=== PATIENT | female | born 1950 | race Caucasian/White ===

== ENCOUNTER 2016-11-13 22:36 | Inpatient (IN) | payer OTHER, BC ==
[~2016-11-13] VITALS: Ht 167.6 cm; Wt 91.7 kg
[2016-11-13] MEDS ORDERED: ATOR10TA88 PO (22:52)
[2016-11-13] MEDS ORDERED: ASPI81TA28 PO (22:52)
[2016-11-13] MEDS ORDERED: MULT-506 PO (22:52)
[2016-11-13] MEDS ORDERED: ONDANSETRON INJ 2 MG/ML 2 ML VIAL IV STA (23:49)
[2016-11-13] MEDS ORDERED: MoRPHine SULFATE 10 MG/ML CARP/VIAL IV STA (23:49)
[2016-11-13] MEDS ORDERED: SODIUM CHLORIDE 0.9% 500ML 500 ML IV STA (23:49)
[2016-11-13 23:58] LABS: BASO % 0.2 %; BASO ABS # 0.02 K/uL (0-0.2); COMPLETE YES; HEMATOCRIT 40.4 % (37-47); IG% 0.3 %; LYMPH % 10.5 %; LYMPH ABS # 1.03 K/uL (1.2-3.4); MEAN CELL VOLUME 87.1 fL (80-100); MEAN CORPUSCULAR HEMOGLOBIN 29.5 pg (25-34); MEAN CORPUSCULAR HGB CONC 33.9 g/dl (32-36); MEAN PLATELET VOLUME 10.3 fL (7.4-10.4); MONO % 6.1 %; NEUT % 81.9 %; PLATELET COUNT 165 K/uL (130-400); RED BLOOD COUNT 4.64 M/uL (4.2-5.4); WHITE BLOOD COUNT 9.82 K/uL (4.8-10.8)
[2016-11-14] VITALS (9 sets, daily range): BP systolic 105–148; BP diastolic 65–84; PULSE 70–91; TEMP 36.3–37.1; O2SAT 92–98; Ht 167.6 cm; Wt 91.7 kg
[2016-11-14] MEDS ORDERED: MoRPHine SULFATE 2 MG/ML CARP ONE (00:09)
[2016-11-14] MEDS ORDERED: MoRPHine SULFATE 4 MG/ML 1 ML CARP\\VIAL ONE (00:09)
[2016-11-14 00:20] LABS: BLOOD UREA NITROGEN 25 mg/dl (7-18); BUN/CREATININE RATIO 25.5 (10-20); CALCIUM 8.5 mg/dl (8.5-10.1); CARBON DIOXIDE 29 mmol/L (21-32); CHLORIDE 108 mmol/L (98-107); CREATININE 0.97 mg/dl (0.60-1.20); GLUCOSE 110 mg/dl (70-99); POTASSIUM 4.4 mmol/L (3.5-5.1); PROTHROMBIN TIME (PATIENT) 10.5 SECONDS (9.0-12.0); SODIUM 142 mmol/L (136-145)
[2016-11-14 00:28] LABS: URINE APPEARANCE CLEAR (CLEAR); URINE BILIRUBIN NEG (NEG); URINE COLOR YELLOW; URINE NITRITE NEG (NEG); URINE SPECIFIC GRAVITY 1.022 (1.000-1.030); UROBILINOGEN NEG (NEG); ZZURINE CULT IF INDIC CATH NO
[2016-11-14 00:31] LABS: MANUAL MICROSCOPIC REQUIRED? NO; REVIEW REQ? NO
[2016-11-14 00:39] LABS: ALKALINE PHOSPHATASE 63 U/L (45-117); ALT/SGPT 27 U/L (12-78); AST/SGOT 18 U/L (15-37)
[2016-11-14] MEDS ORDERED: HYDROmorphone INJ 0.5 MG/0.5 ML SYR IV PRN (01:45)
[2016-11-14] MEDS ORDERED: BISACODYL 10 MG SUPP PR PRN ×2 (01:45→18:00)
[2016-11-14] MEDS ORDERED: NALOXONE HCL 0.4 MG/1 ML VIAL/CARP IV PRN (01:45)
[2016-11-14] MEDS ORDERED: ONDANSETRON INJ 2 MG/ML 2 ML VIAL IV PRN ×2 (01:45→15:45)
[2016-11-14] MEDS ORDERED: SOD PHOSPHATE/SOD BIPHOSPHATE ENEMA 132 ML BTL PR PRN ×2 (01:45→18:00)
[2016-11-14] MEDS ORDERED: POLYETHYLENE (MIRALAX) 17 GM PACK PO PRN (01:45)
[2016-11-14] MEDS ORDERED: MAGNESIUM HYDROXIDE SUSP 30 ML UDC PO PRN ×2 (01:45→18:00)
--- NOTE | 2016-11-14 01:57 | History and Physical ---
History & Physical Date & Time of Service: Nov 14, 2016 at 01:43 Chief Complaint: Fall, Hip Pain Primary Care Physician: No Doctor, Assigned History of Present Illness Source: patient 66-year-old female with no significant past medical history presented to the ER with complaints of left-sided hip pain. The [place] out [place] and was visiting friends in [place] [facility] [employer] and was attending the [employer] display this evening. She tripped over the sidewalk and fell on her left hip . She stated that she could not bear weight on her left leg. Denies any dizziness or lightheadedness, palpitations or chest pain prior to the fall. Denies any injury to the head, loss of consciousness. Complains of pain along the left hip which she thinks is fairly well controlled , denies any numbness or tingling along her left leg. Denies any chest pain, shortness of breath, nausea or vomiting or abdominal pain. Social History Smoking Status: Never Smoker Allergies Coded Allergies: No Known Allergies (Unverified , 11/13/16) Home Medications Scheduled Aspirin (Aspirin Ec), 81 MG PO DAILY Atorvastatin (Lipitor), 1 TAB PO DAILY Multivitamin (Multivitamin), 1 TAB PO DAILY Review of Systems Constitutional: No fever, No chills Eyes: No worsening of vision ENT: No hearing loss Respiratory: No cough, No sputum Cardiovascular: No chest pain Abdomen: No pain, No nausea, No vomiting Musculoskeletal: + joint pain (left hip pain) Genitourinary - Female: No dysuria, No urinary frequency Neurologic: No memory loss Psychiatric: No depression symptoms Endocrine: No fatigue Integumentary: No rash Physical Exam Vital Signs Date Time Temp Pulse Resp B/P (MAP) Pulse Ox O2 Delivery O2 Flow Rate FiO2 11/14/16 00:46 84 20 145/73 92 Room Air 11/13/16 23:54 85 11/13/16 22:38 36.7 83 20 177/83 96 Room Air General Appearance: WD/WN, no apparent distress Head: normocephalic Eyes: normal inspection ENT: normal ENT inspection, hearing grossly normal Neck: supple Respiratory/Chest: chest non-tender, lungs clear, normal breath sounds, no respiratory distress, no accessory muscle use Cardiovascular: regular rate, rhythm, no edema Abdomen/GI: normal bowel sounds, non tender, soft Extremities/Musculoskelatal: no calf tenderness, no pedal edema, + pertinent finding (some tenderness along left hip) Neurologic/Psych: alert, normal mood/affect, oriented x 3 Skin: normal color Diagnostics Laboratory Results Results Past 24 Hours Test 11/13/16 23:50 11/13/16 23:59 Range/Units White Blood Count 9.82 4.8-10.8 K/uL Red Blood Count 4.64 4.2-5.4 M/uL Hemoglobin 13.7 12.0-16.0 g/dL Hematocrit 40.4 37-47 % Mean Corpuscular Volume 87.1 80-100 fL Mean Corpuscular Hemoglobin 29.5 25-34 pg Mean Corpuscular Hemoglobin Concent 33.9 32-36 g/dl Platelet Count 165 130-400 K/uL Mean Platelet Volume 10.3 7.4-10.4 fL Neutrophils (%) (Auto) 81.9 % Lymphocytes (%) (Auto) 10.5 % Monocytes (%) (Auto) 6.1 % Eosinophils (%) (Auto) 1.0 % Basophils (%) (Auto) 0.2 % Neutrophils # (Auto) 8.04 1.4-6.5 K/uL Lymphocytes # (Auto) 1.03 1.2-3.4 K/uL Monocytes # (Auto) 0.60 0.11-0.59 K/uL Eosinophils # (Auto) 0.10 0-0.5 K/uL Basophils # (Auto) 0.02 0-0.2 K/uL RDW Standard Deviation 43.2 36.4-46.3 fL RDW Coefficient of Variation 13.6 11.5-14.5 % Immature Granulocyte % (Auto) 0.3 % Immature Granulocyte # (Auto) 0.03 0.00-0.02 K/uL Prothrombin Time 10.5 9.0-12.0 SECONDS Prothromb Time International Ratio 1.0 0.9-1.1 Activated Partial Thromboplast Time 26.8 21.0-31.0 SECONDS Partial Thromboplastin Ratio 1.0 Sodium Level 142 136-145 mmol/L Potassium Level 4.4 3.5-5.1 mmol/L Chloride Level 108 98-107 mmol/L Carbon Dioxide Level 29 21-32 mmol/L Anion Gap 5.0 3-11 mmol/L Blood Urea Nitrogen 25 7-18 mg/dl Creatinine 0.97 0.60-1.20 mg/dl Est Creatinine Clear Calc Drug Dose 65.1 ml/min Estimated GFR () 70.5 Estimated GFR (Non- 60.9 BUN/Creatinine Ratio 25.5 10-20 Random Glucose 110 70-99 mg/dl Calcium Level 8.5 8.5-10.1 mg/dl Total Bilirubin 0.3 0.2-1 mg/dl Direct Bilirubin < 0.1 0-0.2 mg/dl Aspartate Amino Transf (AST/SGOT) 18 15-37 U/L Alanine Aminotransferase (ALT/SGPT) 27 12-78 U/L Alkaline Phosphatase 63 45-117 U/L Troponin I < 0.015 0-0.045 ng/ml Total Protein 7.0 6.4-8.2 gm/dl Albumin 3.5 3.4-5.0 gm/dl Urine Color YELLOW Urine Appearance CLEAR CLEAR Urine pH 5.0 4.5-7.5 Urine Specific [place] 1.022 1.000-1.030 Urine Protein NEG NEG Urine Glucose (UA) NEG NEG Urine Ketones NEG NEG Urine Occult Blood NEG NEG Urine Nitrite NEG NEG Urine Bilirubin NEG NEG Urine Urobilinogen NEG NEG Urine Leukocyte Esterase NEG NEG Diagnostic Radiology Left hip/pelvis x-ray: Intertrochanteric fracture of left femur Chest x-ray: No focal infiltrate Impression Assessment and Plan 66-year-old female with no significant past medical history presented to the ER with complaints of left-sided hip pain after sustaining a mechanical fall on the left side. The patient is fairly healthy with no significant past medical history. Recent DEXA was normal Revised cardiac risk index for preoperative risk 0, 0.4% risk of major cardiac event-- low risk Left femoral intertrochanteric fracture secondary to mechanical fall: - Hip/pelvis x-ray: Left femoral intertrochanteric fracture - EKG: Normal sinus rhythm with nonspecific ST changes - Pain control with hydromorphone and morphine - Nothing by mouth - Orthopedic consult DVT prophylaxis: SCDs Full code Disposition: Admitted to [facility] Resident Physician Supervision Note: I was present with Dr. Alexander during the history and exam. I discussed the case with the resident and agree with the findings and plan as documented in the note. Any exceptions or clarifications are listed here: 66 y/o F presenting following a fall and subsequent hip fracture. Recently had a DEXA which was neg for osteoporosis. She denies active medical issues. OE AAO x 3 S1,2 R CTAB NT, ND BS+ No CCE P: IVF, NPO pending ortho eval Risk assessment completed with resident - no further CV workup recommended Documented By: Maximiliano Rutledge Level of Care Med/Surg Resuscitation Status FULL RESUSCITATION VTE Prophylaxis Given or contraindicated: SCD's Resident Tracking Resident Involvement: Resident Care Provided Care Provided: Adult Hospital Medicine
--- NOTE | 2016-11-14 02:50 | EMERGENCY ROOM VISIT NOTE ---
History Report prepared by Fransisco: Toni Lopez Under the Supervision of: Dr. Yanet Garcia D.O. First contact with patient: 23:10 Chief Complaint: FALL Stated Complaint: FALL, HIP PAIN History of Present Illness The patient is a 66 year old female who presents to the Emergency Room with complaints of pain in her left hip following a falling accident that occurred just shortly prior to arrival. The patient states that she was attending the [employer] this evening and tripped over the sidewalk while walking back to her vehicle. She states that she fell directly onto her left hip. The patient notes that she was not able to put weight on the left leg following the accident. She claims that she did not impact her head during the fall. She denies any head, back, or neck pain currently. The patient also denies headache , numbness, tingling, change in vision, fevers, chest pain, shortness of breath , nausea, vomiting, diarrhea, pain with urination, and melena. She is on 81 mg of Aspiring daily as a blood thinner. Source of History: patient Onset: Shortly [employer] Position: leg (left, hip) Quality: other (Fall) Associated Symptoms: No LOC, No headache, No weakness, No numbness Review of Systems See HPI for pertinent positives & negatives. A total of 10 systems reviewed and were otherwise negative. Past Medical & Surgical Medical Problems: (1) Fracture, intertrochanteric, left femur Patient denies any past medical/surgical history Family History Family history omitted secondary to age. Social History Smoking Status: Never Smoker Drug Use: none Marital Status: Housing Status: lives with significant other Current/Historical Medications Scheduled Aspirin (Aspirin Ec), 81 MG PO DAILY Atorvastatin (Lipitor), 1 TAB PO DAILY Multivitamin (Multivitamin), 1 TAB PO DAILY Allergies Coded Allergies: No Known Allergies (Unverified , 11/13/16) Physical Exam Vital Signs Date Time Temp Pulse Resp B/P (MAP) Pulse Ox O2 Delivery O2 Flow Rate FiO2 11/14/16 00:46 84 20 145/73 92 Room Air 11/13/16 23:54 85 11/13/16 22:38 36.7 83 20 177/83 96 Room Air Physical Exam GENERAL: Laying in bed, disheveled, well nourished, no distress, non-toxic HEAD: normal cephalic, atraumatic EYE EXAM: normal conjunctiva, PERRL and EOM's grossly intact OROPHARYNX: no exudate, no erythema, lips, buccal mucosa, and tongue normal and mucous membranes are moist NECK: supple, no nuchal rigidity, no adenopathy, non-tender CHEST: stable to compression anteriorly and posteriorly LUNGS: clear to auscultation. Normal chest wall mechanics HEART: no murmurs, S1 normal and S2 normal ABDOMEN: abdomen soft, non-tender, normo-active bowel sounds, no masses, no rebound or guarding. PELVIS: stable to compression anteriorly and posteriorly BACK: Back is symmetrical on inspection and there is no deformity, no midline tenderness, no CVA tenderness. UPPER EXTREMITIES: full active and passive range of motion of all joints without tenderness to palpation LOWER EXTREMITIES: There is upper right leg tenderness over the left hip, no pain within the ankle, calf, knee, or distal femur. The right extremity is without tenderness. DP were 2/4 bilaterally. Gross sensation is intact. NEURO EXAM: Normal sensorium, cranial nerves II-XII grossly intact, normal speech, no gross weakness of arms, GCS: 15. Medical Decision & Procedures ER Provider Diagnostic Interpretation: Radiology results as stated below per my review X-RAY: 3 VIEW OF THE LEFT HIP X-ray reveals a left Intertrochanteric fracture. No obvious pelvic fracture. X-RAY: AP UPRIGHT 1 VIEW No focal infiltrate, no pneumothorax. Laboratory Results 11/13/16 23:50 Red Blood Count 4.64, Mean Corpuscular Volume 87.1, Mean Corpuscular Hemoglobin 29.5, Mean Corpuscular Hemoglobin Concent 33.9, Mean Platelet Volume 10.3, Neutrophils (%) (Auto) 81.9, Lymphocytes (%) (Auto) 10.5, Monocytes (%) (Auto) 6.1, Eosinophils (%) (Auto) 1.0, Basophils (%) (Auto) 0.2, Neutrophils # (Auto) 8.04, Lymphocytes # (Auto) 1.03, Monocytes # (Auto) 0.60, Eosinophils # (Auto) 0.10, Basophils # (Auto) 0.02 11/13/16 23:50 Test 11/13/16 23:50 11/13/16 23:59 White Blood Count 9.82 K/uL (4.8-10.8) Red Blood Count 4.64 M/uL (4.2-5.4) Hemoglobin 13.7 g/dL (12.0-16.0) Hematocrit 40.4 % (37-47) Mean Corpuscular Volume 87.1 fL (80-100) Mean Corpuscular Hemoglobin 29.5 pg (25-34) Mean Corpuscular Hemoglobin Concent 33.9 g/dl (32-36) Platelet Count 165 K/uL (130-400) Mean Platelet Volume 10.3 fL (7.4-10.4) Neutrophils (%) (Auto) 81.9 % Lymphocytes (%) (Auto) 10.5 % Monocytes (%) (Auto) 6.1 % Eosinophils (%) (Auto) 1.0 % Basophils (%) (Auto) 0.2 % Neutrophils # (Auto) 8.04 K/uL (1.4-6.5) Lymphocytes # (Auto) 1.03 K/uL (1.2-3.4) Monocytes # (Auto) 0.60 K/uL (0.11-0.59) Eosinophils # (Auto) 0.10 K/uL (0-0.5) Basophils # (Auto) 0.02 K/uL (0-0.2) RDW Standard Deviation 43.2 fL (36.4-46.3) RDW Coefficient of Variation 13.6 % (11.5-14.5) Immature Granulocyte % (Auto) 0.3 % Immature Granulocyte # (Auto) 0.03 K/uL (0.00-0.02) Prothrombin Time 10.5 SECONDS (9.0-12.0) Prothromb Time International Ratio 1.0 (0.9-1.1) Activated Partial Thromboplast Time 26.8 SECONDS (21.0-31.0) Partial Thromboplastin Ratio 1.0 Anion Gap 5.0 mmol/L (3-11) Est Creatinine Clear Calc Drug Dose 65.1 ml/min Estimated GFR () 70.5 Estimated GFR (Non- 60.9 BUN/Creatinine Ratio 25.5 (10-20) Calcium Level 8.5 mg/dl (8.5-10.1) Total Bilirubin 0.3 mg/dl (0.2-1) Direct Bilirubin < 0.1 mg/dl (0-0.2) Aspartate Amino Transf (AST/SGOT) 18 U/L (15-37) Alanine Aminotransferase (ALT/SGPT) 27 U/L (12-78) Alkaline Phosphatase 63 U/L (45-117) Troponin I < 0.015 ng/ml (0-0.045) Total Protein 7.0 gm/dl (6.4-8.2) Albumin 3.5 gm/dl (3.4-5.0) 25-Hydroxy Vitamin D Total 23.9 ng/ml (30-100) Urine Color YELLOW Urine Appearance CLEAR (CLEAR) Urine pH 5.0 (4.5-7.5) Urine Specific [place] 1.022 (1.000-1.030) Urine Protein NEG (NEG) Urine Glucose (UA) NEG (NEG) Urine Ketones NEG (NEG) Urine Occult Blood NEG (NEG) Urine Nitrite NEG (NEG) Urine Bilirubin NEG (NEG) Urine Urobilinogen NEG (NEG) Urine Leukocyte Esterase NEG (NEG) Laboratory results per my review. Medications Administered Medications (Trade) Dose Ordered Sig/Can Route Start Time Stop Time Status Last Admin Dose Admin Sodium Chloride 500 ml @ 999 mls/hr Q31M STAT IV 11/13/16 23:49 11/14/16 00:19 DC 11/14/16 00:15 999 MLS/HR Ondansetron HCl (Zofran Inj) 4 mg NOW STAT IV 11/13/16 23:49 11/13/16 23:50 DC 11/14/16 00:13 4 MG Morphine Sulfate (MoRPHine SULFATE INJ) 4 mg STK-MED ONCE .ROUTE 11/14/16 00:09 11/14/16 00:10 DC 11/14/16 00:13 4 MG Morphine Sulfate (MoRPHine SULFATE INJ) 2 mg STK-MED ONCE .ROUTE 11/14/16 00:09 11/14/16 00:10 DC 11/14/16 00:13 2 MG ECG Indication: other (Hip Fracture) Rate (beats per minute): 83 Rhythm: normal sinus Findings: nonspecific-ST abn (Lateral), other (Normal axis) Comparison ECG Date: no prior available ED Course ED COURSE: Vital signs were reviewed and showed hypertensive vitals The patients medical record was reviewed The above diagnostic studies were performed and reviewed. ED treatments and interventions as stated above. 2311: The patient was evaluated in room B7. A complete history and physical examination was performed. 2349: Ordered Zofran 4 mg IV, Sodium Chloride 500 mL @ 999 mL/hr IV, Morphine Sulfate 6 mg IV. 2356: I checked on the patient at this time to discuss the results of her hip x- ray. she is resting in bed. 0049: I discussed the case with Dr. Aamir Olmedo [facility] Hospitalist at this time. He will evaluate the patient for further treatment. 0052: Upon reevaluation, the patient is resting in bed.I discussed my findings with the patient and she understands and agrees with the treatment plan. Based on the patients age, coexisting illnesses, exam and lab findings the decision to treat as an inpatient was made. The patient remained stable while under my care. The patient will be evaluated for further management. Medical Decision Blood Pressure Screening: The patient was found to have a slightly elevated blood pressure due to circumstances. I do not believe that the patient requires hypertension monitoring. Medication Reconciliation: I attest that I have personally reviewed the patient' s current medication list. Differential diagnoses include major intracranial, cervical, spinal, thoracic, abdominal, pelvic and neurologic injury. Fracture, contusion, sprain, strain, laceration, abrasions included as well. Patient is a 66-year-old female who presents the ER following a mechanical fall for left hip pain. X-ray show an acute fracture. Hip fracture protocol was ordered. EKG shows slight ST segment depressions in the lateral leads. Troponin was negative. She denies chest pain or shortness of breath. She was given IV narcotics 2. She felt significantly better. She was admit to internal medicine to see orthopedics in the morning for her left hip fracture. Impression Primary Impression: Hip fracture, left Scribe Attestation The scribe's documentation has been prepared under my direction and personally reviewed by me in its entirety. I confirm that the note above accurately reflects all work, treatment, procedures, and medical decision making performed by me. Departure Information Dispostion Being Evaluated By Hospitalist Referrals No Doctor, Assigned (PCP) Patient Instructions My [facility] Problem Qualifiers Primary Impression: Hip fracture, left Encounter type: initial encounter Fracture type: closed Qualified Codes: S72.002A - Fracture of unspecified part of neck of left femur, initial encounter for closed fracture
[2016-11-14] MEDS: MoRPHine SULFATE 4 MG/ML 1 ML CARP\\VIAL IV PRN ×5 (03:28→21:09)
[2016-11-14] MEDS ORDERED: CEFAZOLIN 2000 MG/60 ML D5W 60 ML IV SCH (06:00)
--- NOTE | 2016-11-14 06:50 | DIAGNOSTIC IMAGING REPORT ---
CHEST 1 VW FRONT-NOT PORTABLE CLINICAL HISTORY: Left hip fracture. Preop chest. COMPARISON STUDY: No previous studies for comparison. FINDINGS: The cardiac and mediastinal contours are normal. There is no evidence of focal pulmonary consolidation. There is no evidence of failure. No pleural effusions are visualized.[ IMPRESSION: No active disease in the chest. Electronically signed by: Bernardino Alexandra M.D. 11/14/2016 6:49 AM Dictated Date/Time: 11/14/2016 6:48 AM
--- NOTE | 2016-11-14 06:56 | DIAGNOSTIC IMAGING REPORT ---
LEFT PELVIS/UNILATERAL HIP 2-3VIEWS CLINICAL HISTORY:66 year-old Female presenting with left hip pain status post fall. TECHNIQUE: Single frontal AP view of the pelvis and frontal and single lateral views of the left hip were obtained. COMPARISON: None. FINDINGS: The pelvis demonstrates no acute fracture or malalignment. Sacroiliac and pubic symphyseal joints intact. Mild osteophytosis of the left hip joint. Moderate stool burden noted. No gross evidence of bowel obstruction. The left hip demonstrates apparent minimally displaced basocervical cortical discontinuity and subjacent intertrochanteric radiolucency, concerning for a complete left femoral neck fracture. No apparent angulation. This abnormality is not well demonstrated on the crosstable lateral view. IMPRESSION: 1. Findings concerning for minimally displaced basocervical left femoral neck fracture. Electronically signed by: Jt Klein 11/14/2016 6:54 AM Dictated Date/Time: 11/14/2016 6:45 AM
--- NOTE | 2016-11-14 09:56 | Orthopedic Progress Note ---
Orthopedic Progress Note Date of Service Nov 14, 2016. Subjective Reports: feeling well, pain controlled w PO medications, Denies: complaints, chest pain, SOB, nausea / vomiting, light headedness, calf pain Additional Notes: 66 yo female who tripped over uneven grass lat evening at the [employer]. Was unable to ambulate, xrays show non displaced intertroch hip fracture. Denies any head injury, LOC, or any other joint injuries. PMHx- Hypercholesterolemia Meds: Lipitor, ASA, MVI Allergies: None Objective calves soft nontender, N/V intact, capillary refill less than 2 sec., A&O x3, toes mobile Hip slightly ER Date Time Temp Pulse Resp B/P (MAP) Pulse Ox O2 Delivery O2 Flow Rate FiO2 11/14/16 06:55 36.8 81 16 118/69 (85) 94 Room Air 11/14/16 02:55 36.7 91 16 128/66 (86) 92 Room Air 11/14/16 02:55 36.7 91 16 128/66 92 Room Air 11/14/16 02:47 89 17 126/73 92 11/14/16 00:46 84 20 145/73 92 Room Air 11/13/16 23:54 85 11/13/16 22:38 36.7 83 20 177/83 96 Room Air Laboratory Results 24 Hours: Test 11/13/16 23:50 White Blood Count 9.82 K/uL Red Blood Count 4.64 M/uL Hemoglobin 13.7 g/dL Hematocrit 40.4 % Mean Corpuscular Volume 87.1 fL Mean Corpuscular Hemoglobin 29.5 pg Mean Corpuscular Hemoglobin Concent 33.9 g/dl Platelet Count 165 K/uL Mean Platelet Volume 10.3 fL Neutrophils (%) (Auto) 81.9 % Lymphocytes (%) (Auto) 10.5 % Monocytes (%) (Auto) 6.1 % Eosinophils (%) (Auto) 1.0 % Basophils (%) (Auto) 0.2 % Neutrophils # (Auto) 8.04 K/uL Lymphocytes # (Auto) 1.03 K/uL Monocytes # (Auto) 0.60 K/uL Eosinophils # (Auto) 0.10 K/uL Basophils # (Auto) 0.02 K/uL Prothromb Time International Ratio 1.0 Prothrombin Time 10.5 SECONDS Assessment & Plan Assessment: Left hip fracture Hypercholesterolemia Plan: Will plan for Left hip ORIF later today.
[2016-11-14] MEDS ORDERED: CEFAZOLIN IV 2,000 MG in DEXTROSE 5% 50ML 50 ML IV SCH (10:00)
--- NOTE | 2016-11-14 11:25 | Progress Note ---
Progress Note Date of Service Nov 14, 2016. (Rowan Cornelius MD) Progress Note S: Patient admitted this AM and seen today on rounds. She denied much pain. Is from [place] and was asking if she could go home to have her hip replacement. I discussed her she should discuss that with them. O: VS as per EMR Gen: Awake, alert, no acute distress CVS: RRR, no MRG Chest: CTAB MSK: L leg externally rotated, minimally shortened. L hip tender to palpation. Ext: Peripheral pulses intact. A: 66yo F, due for L hip replacement after a fall from standing height P: L ORIF with Dr Fierro today Remains NPO Had normal EKG and CXR, no other cardiac work up prior to surgery. (Rowan Cornelius MD) Resident Physician Supervision Note: I was present with PGY3 Dr. Rowan Cornelius during the history and exam. I discussed the case with the resident and agree with the findings and plan as documented in the note. Any exceptions or clarifications are listed here: none. I saw the patient post-op from her ORIF of the left hip fracture. She was resting comfortably. Denied cp, sob, abd pain. VSS no fever gen - nad neck - no JVD heart - RRR lungs - CTA b/l abd - soft, ND ext - mild left thigh edema, no ankle edema b/l, pulses 2+ b/l A/P: left hip fracture s/p ORIF today repeat labs in am fluids, pain control, dispo planning - latter complicated by the fact that her state of residence is [place] Documented By: José Prado MD (José Prado MD) Resident Tracking Resident Involvement: Resident Care Provided Care Provided: Adult [facility] (Rowan Cornelius MD)
[2016-11-14] MEDS: LACTATED RINGER'S 1000ML 1,000 ML IV SCH ×2 (14:13→19:19)
[2016-11-14] MEDS ORDERED: MIDAZOLAM HCL 1 MG/ML 2ML VIAL ONE (14:55)
[2016-11-14] MEDS ORDERED: KETAMINE HCL INJ 50 MG/ML 10 ML VIAL ONE (14:55)
[2016-11-14] MEDS ORDERED: FENTANYL CITRATE INJ 50 MCG/1 ML 2 ML VIAL ONE (14:55)
[2016-11-14] MEDS ORDERED: BUPIVACAINE 0.5 % 5 MG/1 ML PF 10ML VIAL ONE (15:37)
--- NOTE | 2016-11-14 15:42 | History & Physical Bridge Note ---
H&P Re-Evaluation Bridge Note: I have examined the patient, reviewed the History & Physical and in the interval since the performance of the History & Physical I have noted the following changes of clinical significance: No changes noted
[2016-11-14] MEDS ORDERED: EpHEDrine SULFATE INJ 50 MG/ML AMP IV PRN (15:45)
[2016-11-14] MEDS ORDERED: ATROPINE SULFATE 0.1 MG/ML 5ML SYR IV PRN (15:45)
[2016-11-14] MEDS ORDERED: LIDOCAINE HCL 2% 2 ML VIAL (20MG/ML) ONE (17:44)
[2016-11-14] MEDS ORDERED: PROPOFOL IV EMULSION 10 MG/ML 20 ML VIAL IV ONE (17:44)
[2016-11-14] MEDS ORDERED: SODIUM CHLORIDE 0.9% INJ 10 ML VIAL ONE (17:51)
[2016-11-14] MEDS: FENTANYL CITRATE INJ 50 MCG/1 ML 2 ML VIAL IV PRN ×4 (18:03→18:18)
--- NOTE | 2016-11-14 18:19 | [facility] Operative Report ---
Operative Report Operative Date Nov 14, 2016. Pre-Operative Diagnosis Left intertrochanteric hip fracture Post-Operative Diagnosis same Procedure(s) Performed ORIF with trochanteric femoral nail left hip fracture Surgeon Dr. Victor Hugo Fierro Assistant Professor Of Nursing Surgeon(s) Harris Thomas PA-C Estimated Blood Loss 50mL Findings Intertrochanteric hip fracture with good bone noted and stable fixation. Specimens none, Per Surgeon Drains none Complication(s) None Disposition Recovery Room / PACU Indications Acute left hip fracture Description of Procedure Patient is taken to the operating room and anesthetized under spinal anesthesia. She was placed supine on a fracture table. The left leg was placed into boot traction and the well leg was placed into a well-padded leg holding device in flexion and internal rotation. The reduction was performed by abducting the hip placing longitudinal traction in the external rotated position then internally rotation after traction was placed and then adducting the hip. An anatomic reduction was obtained. The left hip was sterilely prepped and draped in usual fashion using ChloraPrep. Fluoroscopy was used throughout the case to assist in the procedure. A lateral incision was made over the left hip. The skin was incised sharply. The subcutaneous fat was divided down to the fascia. Patient more than typical subcutaneous tissue with very significant fat over the hip area. The fascia was divided longitudinally and the gluteus medius was split with a Dasilva elevator enough to identify the tip of the greater trochanter. A guidewire was placed under fluoroscopic guidance and then the drill was used to open up the canal. We more than typical difficulty trying to get the short nail in position so I did advance a guidewire first and then used the curved awl to advance it over the guidewire to further open up the canal in this particular patient. We chose a 12 millimeter gabo. I left the guidewire in place The insertion device was used to insert the gabo over the guidewire and seated at the appropriate depth after which the guidewire was removed and then the second incision was made for the helical blade. The guide was placed and the guidewire was advanced under fluoroscopic guidance into the femoral neck and head. The guidewire placement was centrally aligned on the lateral view centrally aligned in the neck on the AP view but when he got into the head was slightly cephalad of AP but with her very hard bone I accepted this position due to the fact that we are not read. The gabo below the level of the tip of the trochanter and she had some varus neck shaft angle.. The reamers were used and then the 105 millimeter helical blade was impacted into the neck and head fragment. The bone quality was excellent with very hard bone.. The proximal locking screw was tightened. The fracture was compressed. And then the guide for the distal locking screw was advanced to the bone and the drill used and the measurement taken. A 5 mm x 44 mm millimeter locking screw then placed with good fixation. X-rays were obtained to document reduction AP and lateral views. All wounds were irrigated. The subcutaneous tissues were closed with large needle 2-0 Vicryl to close the large amount of space in the proximal incision in the distal incision and superficial fat closed with 2-0 Vicryl.. The skin was closed with linda and sterile dressings were applied. The patient tolerated the procedure well. My physician educational assistant Harris SCHROEDER was first mate throughout the procedure and assisted in patient positioning prepping and draping soft tissue retraction and wound closure and will participate in the postoperative care of the patient. I attest to the content of the Intraoperative Record and any orders documented therein. Any exceptions are noted below.
[2016-11-14] MEDS ORDERED: HYDROmorphone INJ 1 MG/ML SYR ONE (18:25)
[2016-11-14] MEDS: HYDROmorphone INJ 1 MG/ML SYR IV PRN ×3 (18:30→18:40)
--- NOTE | 2016-11-14 19:02 | Anesthesiology Progress Note ---
Anesthesia Post Op Note Date & Time Nov 14, 2016 at 19:02 Vital Signs Pain Intensity: 2 Vital Signs Past 12 Hours Date Time Temp Pulse Resp B/P (MAP) Pulse Ox O2 Delivery O2 Flow Rate FiO2 11/14/16 18:57 37.4 67 16 145/66 (98) 97 Nasal Cannula 2 11/14/16 18:56 127/96 11/14/16 18:53 68 15 11/14/16 18:53 68 15 99 11/14/16 18:51 140/69 11/14/16 18:48 67 11 11/14/16 18:48 67 11 98 11/14/16 18:46 142/75 11/14/16 18:43 67 16 98 11/14/16 18:43 67 16 11/14/16 18:41 143/70 11/14/16 18:38 67 13 11/14/16 18:38 65 13 98 11/14/16 18:37 68 14 99 11/14/16 18:37 68 14 11/14/16 18:36 144/74 11/14/16 18:32 67 14 99 11/14/16 18:32 67 14 11/14/16 18:31 146/78 11/14/16 18:27 66 9 11/14/16 18:27 65 9 98 11/14/16 18:26 147/63 11/14/16 18:22 67 15 11/14/16 18:22 67 15 97 11/14/16 18:21 145/70 11/14/16 18:17 64 12 99 11/14/16 18:17 64 12 11/14/16 18:16 63 11 11/14/16 18:16 63 11 137/82 99 11/14/16 18:11 65 12 11/14/16 18:11 65 12 150/80 100 11/14/16 18:06 65 13 134/69 100 11/14/16 18:06 65 13 11/14/16 18:01 68 15 11/14/16 18:01 68 15 127/72 100 11/14/16 17:56 37.7 69 16 127/74 99 Mask 10 11/14/16 17:56 69 14 127/74 99 11/14/16 17:56 68 14 11/14/16 14:53 36.7 75 16 105/65 (78) 92 Room Air Notes Mental Status: alert / awake / arousable, participated in evaluation Pt Amnestic to Procedure: Yes Nausea / Vomiting: adequately controlled Pain: adequately controlled Airway Patency, RR, SpO2: stable & adequate BP & HR: stable & adequate Hydration State: stable & adequate Neuraxial Anesthesia: was administered, sensory block is resolving Anesthetic Complications: no major complications apparent
[2016-11-14] MEDS: OXYCODONE HCL IR 5 MG TAB (IMMEDIATE RELEASE) PO PRN (19:54)
--- NOTE | 2016-11-14 20:32 | DIAGNOSTIC IMAGING REPORT ---
LEFT FEMUR 2 VIEWS ROUTINE CLINICAL HISTORY: Left trochanteric nail. COMPARISON: Pelvis and left hip radiograph November 13, 2016. Fluoroscopy time: 2 minutes and 56 seconds. FINDINGS: 5 fluoroscopic images demonstrate placement of an intramedullary gabo and trochanteric nail which fixates the intertrochanteric fracture/basicervical fracture of the left femur. Fracture alignment has improved and is near anatomic. Hardware is intact. There are no unexpected radiopaque foreign bodies. IMPRESSION: Expected findings following proximal left femoral internal fixation. Electronically signed by: Hector Lee M.D. 11/14/2016 8:30 PM Dictated Date/Time: 11/14/2016 8:29 PM
[2016-11-14] MEDS: DOCUSATE SODIUM 100 MG CAP PO SCH (21:06)
[2016-11-14] MEDS: DOCUSATE SODIUM/SENNA 50/8.6MG TAB PO SCH (21:06)
[2016-11-14] MEDS: ACETAMINOPHEN 500 MG TAB PO SCH (21:07)
[2016-11-14] MEDS: CEFAZOLIN IV 2,000 MG in DEXTROSE 5% 50ML 50 ML IV SCH (23:27)
[2016-11-15] MEDS: LACTATED RINGER'S 1000ML 1,000 ML IV SCH ×4 (00:06→23:57)
[2016-11-15 03:46] VITALS: BP 127/76; PULSE 78; TEMP 36.3; O2SAT 98
[2016-11-15] MEDS: OXYCODONE HCL IR 5 MG TAB (IMMEDIATE RELEASE) PO PRN ×5 (04:39→23:14)
[2016-11-15] MEDS: ACETAMINOPHEN 500 MG TAB PO SCH ×3 (05:37→21:38)
[2016-11-15 06:52] LABS: HEMATOCRIT 35.1 % (37-47); MEAN CELL VOLUME 86.2 fL (80-100); MEAN CORPUSCULAR HEMOGLOBIN 28.7 pg (25-34); MEAN CORPUSCULAR HGB CONC 33.3 g/dl (32-36); MEAN PLATELET VOLUME 9.9 fL (7.4-10.4); PLATELET COUNT 126 K/uL (130-400); RED BLOOD COUNT 4.07 M/uL (4.2-5.4); WHITE BLOOD COUNT 9.67 K/uL (4.8-10.8)
[2016-11-15 07:34] LABS: BUN/CREATININE RATIO 16.4 (10-20); CALCIUM 7.9 mg/dl (8.5-10.1); CREATININE 0.63 mg/dl (0.60-1.20); POTASSIUM 3.8 mmol/L (3.5-5.1)
[2016-11-15 07:55] VITALS: BP 124/76; PULSE 85; TEMP 37.3; O2SAT 94
[2016-11-15] MEDS: CEFAZOLIN IV 2,000 MG in DEXTROSE 5% 50ML 50 ML IV SCH (08:07)
--- NOTE | 2016-11-15 08:12 | Anesthesiology Progress Note ---
Anesthesia Post Op Note Date & Time Nov 15, 2016 at 08:11 Vital Signs Pain Intensity: 7.0 Vital Signs Past 12 Hours Date Time Temp Pulse Resp B/P (MAP) Pulse Ox O2 Delivery O2 Flow Rate FiO2 11/15/16 03:46 36.3 78 16 127/76 (93) 98 Nasal Cannula 2.0 11/15/16 00:15 Nasal Cannula 2.0 11/14/16 22:48 36.4 84 16 124/77 (93) 93 Nasal Cannula 2.0 11/14/16 22:16 36.5 80 16 146/84 (104) 95 Nasal Cannula 2.0 11/14/16 21:20 37.1 79 18 139/80 (99) 92 Nasal Cannula 2.0 11/14/16 20:15 36.3 72 16 147/83 (104) 97 Nasal Cannula 1.5 Notes Mental Status: alert / awake / arousable, participated in evaluation Pt Amnestic to Procedure: Yes Nausea / Vomiting: adequately controlled Pain: adequately controlled Airway Patency, RR, SpO2: stable & adequate BP & HR: stable & adequate Hydration State: stable & adequate Anesthetic Complications: no major complications apparent
[2016-11-15] MEDS: DOCUSATE SODIUM 100 MG CAP PO SCH ×2 (08:15→20:54)
[2016-11-15] MEDS: RIVAROXABAN 10 MG TAB PO SCH (08:15)
--- NOTE | 2016-11-15 08:33 | Orthopedic Progress Note ---
Orthopedic Progress Note Date of Service Nov 15, 2016. Subjective Post OP Day: 1 Reports: feeling well, pain controlled w PO medications, Denies: complaints, chest pain, SOB, nausea / vomiting, light headedness, calf pain Objective calves soft nontender, N/V intact, capillary refill less than 2 sec., dressing C /D/I, A&O x3, toes mobile Date Time Temp Pulse Resp B/P (MAP) Pulse Ox O2 Delivery O2 Flow Rate FiO2 11/15/16 07:55 37.3 85 16 124/76 (92) 94 Room Air 11/15/16 03:46 36.3 78 16 127/76 (93) 98 Nasal Cannula 2.0 11/15/16 00:15 Nasal Cannula 2.0 11/14/16 22:48 36.4 84 16 124/77 (93) 93 Nasal Cannula 2.0 11/14/16 22:16 36.5 80 16 146/84 (104) 95 Nasal Cannula 2.0 11/14/16 21:20 37.1 79 18 139/80 (99) 92 Nasal Cannula 2.0 11/14/16 20:15 36.3 72 16 147/83 (104) 97 Nasal Cannula 1.5 11/14/16 19:45 36.8 71 16 148/84 (105) 98 Nasal Cannula 2.0 11/14/16 19:15 97 Nasal Cannula 2.0 11/14/16 19:15 97 Nasal Cannula 2.0 11/14/16 19:15 36.4 70 16 144/79 (100) 97 Nasal Cannula 2.0 11/14/16 18:57 37.4 67 16 145/66 (98) 97 Nasal Cannula 2 11/14/16 18:56 127/96 11/14/16 18:53 68 15 11/14/16 18:53 68 15 99 11/14/16 18:51 140/69 11/14/16 18:48 67 11 11/14/16 18:48 67 11 98 11/14/16 18:46 142/75 11/14/16 18:43 67 16 98 11/14/16 18:43 67 16 11/14/16 18:41 143/70 11/14/16 18:38 67 13 11/14/16 18:38 65 13 98 11/14/16 18:37 68 14 99 11/14/16 18:37 68 14 11/14/16 18:36 144/74 11/14/16 18:32 67 14 99 11/14/16 18:32 67 14 11/14/16 18:31 146/78 11/14/16 18:27 66 9 11/14/16 18:27 65 9 98 11/14/16 18:26 147/63 11/14/16 18:22 67 15 11/14/16 18:22 67 15 97 11/14/16 18:21 145/70 11/14/16 18:17 64 12 99 11/14/16 18:17 64 12 11/14/16 18:16 63 11 11/14/16 18:16 63 11 137/82 99 11/14/16 18:11 65 12 11/14/16 18:11 65 12 150/80 100 11/14/16 18:06 65 13 134/69 100 11/14/16 18:06 65 13 11/14/16 18:01 68 15 11/14/16 18:01 68 15 127/72 100 11/14/16 17:56 37.7 69 16 127/74 99 Mask 10 11/14/16 17:56 69 14 127/74 99 11/14/16 17:56 68 14 11/14/16 14:53 36.7 75 16 105/65 (78) 92 Room Air Laboratory Results 24 Hours: Test 11/15/16 06:35 Hematocrit 35.1 % Hemoglobin 11.7 g/dL Assessment & Plan Assessment: POD #1 ORIF Left hip fracture w short troch nail. Hypercholesterolemia Plan: PT/ OT- 50% WB w walker DVT proph- Xarelto D/C planning- Home As per medicine Inhouse Planning Pain Management: Dilaudid, Morphine, PO Tylenol, Oxy IR DVT Prophylaxis: TEDs, SCDs, Xarelto Discharge Planning Discharge Planning: home with oppt Pain Management: PO Tylenol, Oxy IR DVT Prophylaxis: TEDs, Xarelto Therapy: Physical Therapy, Occupational Therapy
[2016-11-15 08:34] VITALS: O2SAT 94
--- NOTE | 2016-11-15 09:03 | Family Medicine Progress Note ---
Progress Note Date of Service Nov 15, 2016. Subjective Pt evaluation today including: conversation w/ patient, physical exam Mrs Robles felt well today. Had minimal pain from site. Will be getting PT today and tomorrow, then will stay at her friends house in [facility] , then fly back on Saturday if able to. Started on Xarelto for DVT prophylaxis. Constitutional: No fever, No chills ENT: No hearing loss Respiratory: No cough, No sputum All Other Systems: Reviewed and Negative Medications Current Inpatient Medications Medications (Trade) Dose Ordered Sig/Can Route Start Time Stop Time Status Last Admin Dose Admin Ondansetron HCl (Zofran Inj) 4 mg Q6H PRN IV 11/14/16 01:45 12/14/16 01:44 Hydromorphone HCl (Dilaudid Inj) 0.25 mg Q20M PRN IV 11/14/16 01:45 11/28/16 01:44 Morphine Sulfate (MoRPHine SULFATE INJ) 4 mg Q2H PRN IV 11/14/16 01:45 11/28/16 01:44 11/14/16 21:09 4 MG Naloxone HCl (Narcan Inj) 0.1 mg PRN PRN IV 11/14/16 01:45 12/14/16 01:44 Senna/Docusate Sodium (Senokot S Tab) 2 tab HS PO 11/14/16 21:00 12/14/16 20:59 11/14/16 21:06 2 TAB Polyethylene (Miralax Powder Packet) 17 gm DAILY PRN PO 11/14/16 01:45 12/14/16 01:44 Lactated Ringer's 1,000 ml @ 125 mls/hr Q8H IV 11/14/16 11:45 12/14/16 11:44 11/15/16 08:11 125 MLS/HR Oxycodone HCl (Roxicodone Immediate Rel Tab) 1-2 TABS FOR PAIN 1 TABLET ... Q4H PRN PO 11/14/16 18:00 11/28/16 17:59 11/15/16 04:39 10 MG Acetaminophen (Tylenol Tab) 1,000 mg Q8 PO 11/14/16 22:00 12/14/16 21:59 11/15/16 05:37 1,000 MG Magnesium Hydroxide (Milk Of Magnesia Susp) 30 ml Q6H PRN PO 11/14/16 18:00 12/14/16 17:59 Bisacodyl (Dulcolax Supp) 10 mg DAILY PRN LA 11/14/16 18:00 12/14/16 17:59 Sodium Biphosphate/ Sodium Phosphate (Fleet Enema) 132 ml DAILY PRN LA 11/14/16 18:00 12/14/16 17:59 Docusate Sodium (coLACE CAP) 100 mg BID PO 11/14/16 21:00 12/14/16 20:59 11/15/16 08:15 100 MG Rivaroxaban (Xarelto Tab) 10 mg DAILY PO 11/15/16 09:00 12/15/16 08:59 11/15/16 08:15 10 MG Objective Vital Signs Date Time Temp Pulse Resp B/P (MAP) Pulse Ox O2 Delivery O2 Flow Rate FiO2 11/15/16 08:34 94 Room Air 11/15/16 07:55 37.3 85 16 124/76 (92) 94 Room Air 11/15/16 03:46 36.3 78 16 127/76 (93) 98 Nasal Cannula 2.0 11/15/16 00:15 Nasal Cannula 2.0 11/14/16 22:48 36.4 84 16 124/77 (93) 93 Nasal Cannula 2.0 11/14/16 22:16 36.5 80 16 146/84 (104) 95 Nasal Cannula 2.0 11/14/16 21:20 37.1 79 18 139/80 (99) 92 Nasal Cannula 2.0 11/14/16 20:15 36.3 72 16 147/83 (104) 97 Nasal Cannula 1.5 11/14/16 19:45 36.8 71 16 148/84 (105) 98 Nasal Cannula 2.0 11/14/16 19:15 97 Nasal Cannula 2.0 11/14/16 19:15 97 Nasal Cannula 2.0 11/14/16 19:15 36.4 70 16 144/79 (100) 97 Nasal Cannula 2.0 11/14/16 18:57 37.4 67 16 145/66 (98) 97 Nasal Cannula 2 11/14/16 18:56 127/96 11/14/16 18:53 68 15 11/14/16 18:53 68 15 99 11/14/16 18:51 140/69 11/14/16 18:48 67 11 11/14/16 18:48 67 11 98 11/14/16 18:46 142/75 11/14/16 18:43 67 16 98 11/14/16 18:43 67 16 11/14/16 18:41 143/70 11/14/16 18:38 67 13 11/14/16 18:38 65 13 98 11/14/16 18:37 68 14 99 11/14/16 18:37 68 14 11/14/16 18:36 144/74 11/14/16 18:32 67 14 99 11/14/16 18:32 67 14 11/14/16 18:31 146/78 11/14/16 18:27 66 9 11/14/16 18:27 65 9 98 11/14/16 18:26 147/63 11/14/16 18:22 67 15 11/14/16 18:22 67 15 97 11/14/16 18:21 145/70 11/14/16 18:17 64 12 99 11/14/16 18:17 64 12 11/14/16 18:16 63 11 11/14/16 18:16 63 11 137/82 99 11/14/16 18:11 65 12 11/14/16 18:11 65 12 150/80 100 11/14/16 18:06 65 13 134/69 100 11/14/16 18:06 65 13 11/14/16 18:01 68 15 11/14/16 18:01 68 15 127/72 100 11/14/16 17:56 37.7 69 16 127/74 99 Mask 10 11/14/16 17:56 69 14 127/74 99 11/14/16 17:56 68 14 11/14/16 14:53 36.7 75 16 105/65 (78) 92 Room Air Physical Exam General Appearance: WD/WN, no apparent distress Eyes: normal inspection, PERRL ENT: hearing grossly normal Neck: supple, no JVD Respiratory/Chest: lungs clear, normal breath sounds, no respiratory distress Cardiovascular: no murmur Abdomen: soft Extremities: no pedal edema Neurologic/Psychiatric: alert, normal mood/affect, oriented x 3 Skin: no rash Laboratory Results Last 24 Hours Test 11/15/16 06:35 White Blood Count 9.67 K/uL Red Blood Count 4.07 M/uL Hemoglobin 11.7 g/dL Hematocrit 35.1 % Mean Corpuscular Volume 86.2 fL Mean Corpuscular Hemoglobin 28.7 pg Mean Corpuscular Hemoglobin Concent 33.3 g/dl RDW Standard Deviation 43.1 fL RDW Coefficient of Variation 13.6 % Platelet Count 126 K/uL Mean Platelet Volume 9.9 fL Sodium Level 141 mmol/L Potassium Level 3.8 mmol/L Chloride Level 107 mmol/L Carbon Dioxide Level 27 mmol/L Anion Gap 7.0 mmol/L Blood Urea Nitrogen 10 mg/dl Creatinine 0.63 mg/dl Est Creatinine Clear Calc Drug Dose 100.2 ml/min Estimated GFR () 108.3 Estimated GFR (Non- 93.5 BUN/Creatinine Ratio 16.4 Random Glucose 111 mg/dl Calcium Level 7.9 mg/dl Assessment and Plan 66 yo F day 1 s/p L ORIF. Is originally from [place]. Day 1 s/p L ORIF for left femoral intertrochanteric fracture secondary to mechanical fall: Tolerating advanced diet PT/OT today Xarelto for DVT Prophylaxis Has morphine PRN for pain, will adjust as needed DVT prophylaxis: Xarelto Full code Disposition: Admitted to [facility] - Resident Physician Supervision Note: I was present with PGY3 Dr. Rowan Cornelius during the history and exam. I discussed the case with the resident and agree with the findings and plan as documented in the note. Any exceptions or clarifications are listed here: none. Some pain/soreness left hip/leg but o/w denies cp, sob, abd pain Eating ok. +flatus. VSS no fever gen - nad neck - no JVD heart - RRR lungs - CTA b/l abd - soft, ND ext - mild left thigh edema, no ankle edema b/l, pulses 2+ b/l skin - dressings intact left hip A/P: left hip fracture s/p ORIF - POD #1 DVT proph - xarelto vit D insufficiency - 2000 IU vit D daily stop LR later today dehydration - resolved dispo planning - latter complicated by the fact that her state of residence is [place] see Dr. Cornelius's notation re: this Documented By: José Prado MD Resident Tracking Resident Involvement: Resident Care Provided Care Provided: Adult Hospital Medicine
[2016-11-15 15:25] VITALS: BP 129/78; PULSE 81; TEMP 36.6; O2SAT 92
[2016-11-15] MEDS: DOCUSATE SODIUM/SENNA 50/8.6MG TAB PO SCH (20:55)
[2016-11-15 23:01] VITALS: BP 134/75; PULSE 85; TEMP 36.9; O2SAT 92
[2016-11-16] MEDS: OXYCODONE HCL IR 5 MG TAB (IMMEDIATE RELEASE) PO PRN ×4 (03:19→21:24)
[2016-11-16] MEDS: ACETAMINOPHEN 500 MG TAB PO SCH ×3 (06:00→21:25)
[2016-11-16 07:45] VITALS: BP 136/78; PULSE 83; TEMP 36.8; O2SAT 92
[2016-11-16] MEDS: DOCUSATE SODIUM 100 MG CAP PO SCH ×2 (08:22→21:00)
[2016-11-16] MEDS: RIVAROXABAN 10 MG TAB PO SCH (08:22)
--- NOTE | 2016-11-16 08:32 | Orthopedic Progress Note ---
Orthopedic Progress Note Date of Service Nov 16, 2016. Subjective Post OP Day: 2 Reports: feeling well, Denies: chest pain, SOB, nausea / vomiting, light headedness, calf pain Additional Notes: Pt states she didn't do that well in PT yesterday. Stood at the bedside but got LH. We discussed the possibility of going to [facility]. She is agreeable since she is not doing as well as she thought she would. She will need to be able to negotiate steps to stay at a friends home or to fly back to [place] where she is from. States the leg feels weak and she is unable to do an SLR yet. Discussed that this is not that unusual and will get better with time. No other complaints. Objective calves soft nontender, N/V intact, incision C/D/I, A&O x3, toes mobile She has good DF/PF of the left foot. Date Time Temp Pulse Resp B/P (MAP) Pulse Ox O2 Delivery O2 Flow Rate FiO2 11/16/16 07:45 36.8 83 14 136/78 (97) 92 Room Air 11/15/16 23:55 Room Air 11/15/16 23:01 36.9 85 17 134/75 (94) 92 Room Air 11/15/16 15:50 Room Air 11/15/16 15:25 36.6 81 18 129/78 (95) 92 Room Air 11/15/16 08:34 94 Room Air Assessment & Plan Assessment: POD #2 ORIF Left hip fracture w short troch nail. Hypercholesterolemia Plan: PT/ OT- 50% WB w walker DVT proph- Xarelto D/C planning- Will likely need [facility] if not progressing in PT. Pt agreeable. As per medicine Inhouse Planning Pain Management: Dilaudid, Morphine, PO Tylenol, Oxy IR DVT Prophylaxis: TEDs, SCDs, Xarelto Discharge Planning Discharge Planning: uncertain Pain Management: PO Tylenol, Oxy IR DVT Prophylaxis: TEDs, Xarelto Therapy: Physical Therapy, Occupational Therapy
--- NOTE | 2016-11-16 08:38 | Consultant Recommendations ---
Manufacturing Engineering Professor Recommendations Date of Service Nov 16, 2016. Manufacturing Engineering Professor Recommendations U DISCHARGE INSTRUCTIONS: HIP FRACTURE SELF CARE INSTRUCTIONS: A. You are to ambulate with a walker or crutches for approximately 6 weeks. B. You are PARTIAL WEIGHT BEARING ( 50%) on your operative lower extremity for at least 4 - 6 weeks. C. Wear low heeled shoes with non-slip soles D. Be sure that your floors are free of things that could trip you throw rugs, electrical cords, and small objects. Avoid wet and waxed floors, especially with crutches/walker/cane. E. Try to walk several times a day with rest periods between. F. You may shower 48 hours after surgery and get the incision area wet, but DO NOT soak or submerge incision area in water. (No baths, swimming pools, hot tubs ) G. You may have a large, band-aid like dressing over your incision (Aquacel). This will remain on your incision for 7 days, and then can be removed. You CAN shower with this on. If incision is leaking through the dressing, please call the office . H. Do NOT apply soap or any ointment/lotions directly over incision. I. You may use ice as needed to operative site. SPECIAL CARE INSTRUCTIONS: VERY IMPORTANT TO READ AND REVIEW A. You may be at risk for phlebitis or blood clots. a. Wear surgical stockings (AUNG hose) for 2 weeks after surgery to improve circulation and reduce swelling. b. Take Xarelto 10mg for 4 weeks or as directed. This is your blood thinner. B. There are a few signs you need to watch for after you are home. Call [facility] at [phone] if you experience any of the following: a. If you have a temperature of 101 degrees or higher. b. Sudden increase in pain in your hip not relieved by rest or pain medication. c. Any fluid or drainage from the incision; redness of the incision. d. Shortness of breath or chest pain. C. Call your physician if you have any unanswered questions or concerns. D. Pain Medication: a. You will be prescribed pain medication upon discharge that should last till your first post-operative appointment. b. If you experience nausea and/or skin rash, discontinue this medication and contact our office for an alternative medication. c. Caution- narcotic pain medication can cause constipation. FOLLOW UP VISIT: Please call [facility] at [phone] to schedule a follow up appointment 10-14 days from the date of your surgery date. If you are returning home to [place] before then, you will need to see and Orthopedic physician for follow up and staple removal.
[2016-11-16] MEDS: CHOLECALCIFEROL 1000 INTER.UNIT TAB PO SCH (09:22)
[2016-11-16 09:32] VITALS: O2SAT 92
[2016-11-16] MEDS: TRAMADOL HCL 50 MG TAB PO PRN ×2 (10:21→19:46)
[2016-11-16 15:04] VITALS: BP 132/79; PULSE 87; TEMP 36.8; O2SAT 92
[2016-11-16] MEDS: DOCUSATE SODIUM/SENNA 50/8.6MG TAB PO SCH (21:00)
[2016-11-16 22:58] VITALS: BP 135/80; PULSE 83; TEMP 36.9; O2SAT 94
--- NOTE | 2016-11-16 23:17 | Progress Note ---
Subjective Date of Service: Nov 16, 2016. Subjective Pt evaluation today including: conversation w/ patient, conversation w/ family (), physical exam, chart review, lab review, review of inpatient medication list Pain: left hip, worse with activity PO Intake: fair/good Voiding: edwards catheter in place no events overnight she reports she is willing to go to [facility] locally for rehab due to poor mobility and ongoing pain no BM but passing flatus no nausea or abdominal pain no chest pain or sob Problem List Medical Problems: (1) Hip fracture, left Status: Acute Review of Systems Constitutional: No fever Respiratory: No cough, No sputum, No wheezing, No shortness of breath, No dyspnea on exertion Cardiac: No chest pain, No orthopnea Abdomen: + constipation, No pain, No nausea, No vomiting Objective Vital Signs Date Time Temp Pulse Resp B/P (MAP) Pulse Ox O2 Delivery O2 Flow Rate FiO2 11/16/16 15:20 Room Air 11/16/16 15:04 36.8 87 16 132/79 (96) 92 Room Air 11/16/16 09:32 92 Room Air 11/16/16 08:05 Room Air 11/16/16 07:45 36.8 83 14 136/78 (97) 92 Room Air 11/15/16 23:55 Room Air 11/15/16 23:01 36.9 85 17 134/75 (94) 92 Room Air Physical Exam General Appearance: no apparent distress ENT: pharynx normal Neck: no JVD Respiratory/Chest: lungs clear, no respiratory distress, no accessory muscle use Cardiovascular: regular rate, rhythm, no gallop, no murmur Abdomen: normal bowel sounds, non tender, soft, no organomegaly Extremities: no pedal edema, + swelling (left thigh) Neurologic/Psychiatric: alert, oriented x 3, + pertinent finding (hip flexion 5 /5 b/l; ankle dorsiflexion/plantarflexion 5/5 b/l ) Comments: dressings intact left lateral hip Assessment and Plan 66yo female: 1. left hip fracture s/p ORIF - POD #2 - pt now willing to go to inpatient rehab. Accepted at [facility]. Anticipate d/c there in AM. 2. constipation - dulcolax suppos x 1 now. Miralax/colace +/- senna daily. 3. dehydration - resolved. 4. DVT proph - xarelto 10mg daily. 5. vitamin D insufficiency - 2000 IU of vitamin D daily. 6. d/c jerry. 7. mild acute blood loss anemia - H/H stable. updated d/c to [facility] in am Continued [facility] stay due to: inadequate oral pain control, ambulation difficulties Discharge planning: rehab hospital
[2016-11-17] MEDS: OXYCODONE HCL IR 5 MG TAB (IMMEDIATE RELEASE) PO PRN ×2 (03:03→12:18)
[2016-11-17] MEDS: ACETAMINOPHEN 500 MG TAB PO SCH (05:39)
[2016-11-17 07:03] VITALS: BP 151/73; PULSE 80; TEMP 36.7; O2SAT 92
[2016-11-17] MEDS: RIVAROXABAN 10 MG TAB PO SCH (08:16)
[2016-11-17] MEDS: DOCUSATE SODIUM 100 MG CAP PO SCH (08:16)
[2016-11-17] MEDS: CHOLECALCIFEROL 1000 INTER.UNIT TAB PO SCH (08:16)
[2016-11-17] MEDS: TRAMADOL HCL 50 MG TAB PO PRN (08:17)
--- NOTE | 2016-11-17 08:31 | Orthopedic Progress Note ---
Orthopedic Progress Note Date of Service Nov 17, 2016. Subjective Post OP Day: 3 Reports: feeling well Objective calves soft nontender, N/V intact, dressing C/D/I, toes mobile Date Time Temp Pulse Resp B/P (MAP) Pulse Ox O2 Delivery O2 Flow Rate FiO2 11/17/16 07:03 36.7 80 16 151/73 (99) 92 Room Air 11/16/16 23:30 Room Air 11/16/16 22:58 36.9 83 16 135/80 (98) 94 Room Air 11/16/16 15:20 Room Air 11/16/16 15:04 36.8 87 16 132/79 (96) 92 Room Air 11/16/16 09:32 92 Room Air Assessment & Plan Assessment: POD #3 ORIF Left hip fracture w short troch nail. Hypercholesterolemia Plan: PT/ OT- 50% WB w walker DVT proph- Xarelto D/C planning- Will likely need [facility] if not progressing in PT. Pt agreeable. As per medicine Inhouse Planning Pain Management: Dilaudid, Morphine, PO Tylenol, Oxy IR DVT Prophylaxis: TEDs, SCDs, Xarelto Discharge Planning Discharge Planning: uncertain Pain Management: PO Tylenol, Oxy IR DVT Prophylaxis: TEDs, Xarelto Therapy: Physical Therapy, Occupational Therapy
[2016-11-17] MEDS ORDERED: VTMD1000 PO (10:00)
[2016-11-17] MEDS ORDERED: XRL10 PO (10:00)
[2016-11-17] MEDS ORDERED: CLC100 PO (10:00)
[2016-11-17] MEDS ORDERED: ACET-24 PO (10:00)
[2016-11-17] MEDS ORDERED: BISA-16 PO (10:00)
[2016-11-17] MEDS ORDERED: MRLP17X PO (10:00)
[2016-11-17] MEDS ORDERED: RXC5 PO (10:00)
--- NOTE | 2016-11-17 10:04 | Discharge Instructions ---
Discharge Instructions Date of Service Nov 17, 2016. Admission Reason for Admission: Fracture, Intertrochanteric, Left Femur Discharge Discharge Diagnosis / Problem: left hip fracture s/p repair with a nail Discharge Goals Goal(s): Decrease discomfort, Learn about illness, Diagnostic testing, Therapeutic intervention Activity Recommendations Activity Level: Assistance Required Therapies: Physical Therapy, Occupational Therapy Weightbearing Status: Left partial (50% weight bear) . Additional Information Patient informed of condition: Yes Advance Directives: No DNR: No Level of Care: Acute Rehab Communicable Disease: No Prognosis: Improving Oxygen at (LPM): none Vann Catheter: No Instructions / Follow-Up Instructions / Follow-Up Follow-up with Dr. Victor Hugo Fierro, Orthopedics, within 10-14 days. Follow-up with PCP within 1 week of return to [place]. Current Hospital Diet Patient's current hospital diet: Regular Diet Discharge Diet Recommended Diet: Regular Diet Procedures Procedures Performed: Left Trochanteric Femoral Nail Pending Studies Studies pending at discharge: no Physician Orders On Transfer Special Precautions: hip precautions fall precautions Dressing Changes: to left hip daily and prn IV Therapy: none Vital Signs: per [facility] routine POLST Discussion: Not Applicable Medical Emergencies . Who to Call and When: Medical Emergencies: If at any time you feel your situation is an emergency, please call 911 immediately. . Non-Emergent Contact Non-Emergency issues call your: Surgeon (orthopedics) Call Non-Emergent contact if: temperature is above 100.5, your pain is not controlled, your pain is worsening, your pain is unusual for you, your pain is concerning you, wound has increased drainage, wound has increased redness, wound has increased pain, you have any medication questions . . "Provider Documentation" section prepared by José Prado. . [employer] Recommendations [employer] Recommendations: [facility] DISCHARGE INSTRUCTIONS: HIP FRACTURE SELF CARE INSTRUCTIONS: A. You are to ambulate with a walker or crutches for approximately 6 weeks. B. You are PARTIAL WEIGHT BEARING ( 50%) on your operative lower extremity for at least 4 - 6 weeks. C. Wear low heeled shoes with non-slip soles D. Be sure that your floors are free of things that could trip you throw rugs, electrical cords, and small objects. Avoid wet and waxed floors, especially with crutches/walker/cane. E. Try to walk several times a day with rest periods between. F. You may shower 48 hours after surgery and get the incision area wet, but DO NOT soak or submerge incision area in water. (No baths, swimming pools, hot tubs ) G. You may have a large, band-aid like dressing over your incision (Aquacel). This will remain on your incision for 7 days, and then can be removed. You CAN shower with this on. If incision is leaking through the dressing, please call the office . H. Do NOT apply soap or any ointment/lotions directly over incision. I. You may use ice as needed to operative site. SPECIAL CARE INSTRUCTIONS: VERY IMPORTANT TO READ AND REVIEW A. You may be at risk for phlebitis or blood clots. a. Wear surgical stockings (AUNG hose) for 2 weeks after surgery to improve circulation and reduce swelling. b. Take Xarelto 10mg for 4 weeks or as directed. This is your blood thinner. B. There are a few signs you need to watch for after you are home. Call [facility] at [phone] if you experience any of the following: a. If you have a temperature of 101 degrees or higher. b. Sudden increase in pain in your hip not relieved by rest or pain medication. c. Any fluid or drainage from the incision; redness of the incision. d. Shortness of breath or chest pain. C. Call your physician if you have any unanswered questions or concerns. D. Pain Medication: a. You will be prescribed pain medication upon discharge that should last till your first post-operative appointment. b. If you experience nausea and/or skin rash, discontinue this medication and contact our office for an alternative medication. c. Caution- narcotic pain medication can cause constipation. FOLLOW UP VISIT: Please call [facility] at [phone] to schedule a follow up appointment 10-14 days from the date of your surgery date. If you are returning home to [place] before then, you will need to see and Orthopedic physician for follow up and staple removal. Core Measure Problem Core Measures: None
[2016-11-17 12:09] VITALS: BP 151/73; PULSE 80; TEMP 36.7; O2SAT 92
--- NOTE | 2016-11-29 10:10 | Discharge Summary ---
Discharge Summary Date of Service Nov 29, 2016. Discharge Summary Admission Date: Nov 14, 2016 at 02:01 Discharge Date: Nov 17, 2016 Discharge Disposition: Rehab ([facility] ) Principal Diagnosis: left hip fracture s/p ORIF Problems/Secondary Diagnoses: 1. acute kidney injury 2nd to dehydration - both resolved 2. constipation - resolved 3. mild acute blood loss anemia 4. hyperlipidemia 5. vitamin D insufficiency - level of 23 Procedures: ORIF of left hip fracture - Victor Hugo Fierro MD Consultations: orthopedics - Victor Hugo Fierro MD PT, OT social work Medication Reconciliation New Medications: Bisacodyl (Dulcolax) 5 Mg Tab 2 TAB PO DAILY PRN for Constipation, #10 TAB 0 Refills Acetaminophen (Sb Non-Aspirin Extra Stre) 500 Mg Tab 1000 MG PO Q8 for 7 Days, #42 TAB 0 Refills Cholecalciferol (Vitamin D3) 1,000 Inter.unit Tab 2000 INTER.UNIT PO QAM, #60 TAB 5 Refills Docusate Sodium (Docusate Sodium) 100 Mg Cap 100 MG PO BID, #60 CAP 0 Refills Oxycodone HCl (Oxycodone HCl) 5 Mg Tab 5-10 MG PO Q4H PRN for Pain, #30 TAB 0 Refills Polyethylene (Miralax) 17 Gm Pow 17 GM PO DAILY, #30 PKT 0 Refills Rivaroxaban (Xarelto) 10 Mg Tab 10 MG PO DAILY for 30 Days, #30 TAB 0 Refills Continued Medications: Atorvastatin (Lipitor) 10 Mg Tab 1 TAB PO DAILY for 90 Days, #90 TAB 3 Refills Multivitamin (Multivitamin) Tab 1 TAB PO DAILY, TAB Discontinued Medications: Aspirin (Aspirin Ec) 81 Mg Tab 81 MG PO DAILY Referrals At Discharge Follow up Referrals: Orthopedics Referral - Within 2 Weeks with Victor Hugo Fierro M.D. Discharge Exam Physical Exam: General Appearance: no apparent distress ENT: pharynx normal Neck: no JVD Respiratory/Chest: lungs clear, no respiratory distress, no accessory muscle use Cardiovascular: regular rate, rhythm, no gallop, no murmur, normal peripheral pulses Abdomen / GI: normal bowel sounds, non tender, soft, no organomegaly Extremities: + pedal edema (left ankle), + swelling (left thigh), + pertinent finding (pulses both feet 2+) Skin: + pertinent finding (surgical incision site left thigh with clean linda, no erythema, no drainage) Hospital Course HISTORY OF PRESENT ILLNESS: 66-year-old female - permanent resident of [place] who was visiting friends in [place] - who presented with left-sided hip pain after tripping over a sidewalk and falling on the left leg. She stated that she could not bear weight on her left leg following the injury. Denied any dizziness or lightheadedness, palpitations or chest pain prior to the fall. Denied any injury to the head or loss of consciousness. Denied any numbness or tingling along her left leg, shortness of breath, nausea , abdominal pain, or vomiting. x-rays of the left hip in the ER revealed a left hip fracture. HOSPITAL COURSE: The patient underwent ORIF of her left hip fracture by Dr. Victor Hugo Fierro on hospital day #1 without incident. She had evidence of a very mild acute kidney injury from dehydration and received IV hydration for such. Post-operatively she had significant troubles with pain and thus had difficulty with ambulation. Her initial plan was to discharge and stay with her friends locally then fly back to [place] but ultimately she was agreeable to inpatient rehab at [facility] (before going back to [place]). She received xarelto 10mg daily for DVT prophylaxis and will stay on this upon transfer to [facility]. Constipation was treated with multiple medications and she will remain on a bowel regimen after discharge. Vitamin D insuffiency was treated with 2000 IU of vitamin D daily. At time of her discharge she will transfer to [facility] for rehab. Discharge hemoglobin was 11.7. Left hip incision was clean and free of infection at discharge as well. Follow-up with Dr. Fierro in 10-14 days after discharge was advised. Total Time Spent: Greater than 30 minutes This includes examination of the patient, discharge planning, medication reconciliation, and communication with other providers. Discharge Instructions Please refer to the electronic Patient Visit Report (Discharge Instructions) for additional information. Follow-Up see Dr. Fierro - orthopedics - within 10-14 days Additional Copies To Santy Oliveros M.D.; [facility]; Victor Hugo Fierro M.D.
== END 2016-11-17 13:05 | DRG 481 ==
LOC: EDBD 22:36 → C.EDB 22:39 → C.MSW 11-14 02:01 → ENRESERV 11-14 02:13
PROVIDERS: ADMIT Family Medicine; ATTEND Internal Medicine
PROC: 0QS704Z Reposition Left Upper Femur with Internal Fixation Device, Open Approach (ICD-10-PCS; principal; 2016-11-14 14:45)
DX: S72.142A Displaced intertrochanteric fracture of left femur, initial encounter for closed fracture (principal); D62 Acute posthemorrhagic anemia; E55.9 Vitamin D deficiency, unspecified; K59.00 Constipation, unspecified; E86.0 Dehydration; E78.00 Pure hypercholesterolemia, unspecified; Z51.81 Encounter for therapeutic drug level monitoring; Z79.899 Other long term (current) drug therapy; Z79.82 Long term (current) use of aspirin; W18.09XA Striking against other object with subsequent fall, initial encounter; Y93.01 Activity, walking, marching and hiking; Y93.82 Activity, spectator at an event; Y92.89 Other specified places as the place of occurrence of the external cause; Y99.8 Other external cause status